=== PATIENT | male | born 1990 | race Caucasian/White ===

== ENCOUNTER 2019-10-29 23:28 | Emergency (ER) | payer SELFPAY ==
[2019-10-30] MEDS ORDERED: Ibuprofen 400 MG Tab PO ONE (01:02)
[2019-10-30] MEDS ORDERED: oxyCODONE 5 MG Tab PO ONE (01:02)
[2019-10-30] MEDS ORDERED: Acetaminophen 500 MG Tab PO ONE (01:02)
--- NOTE | 2019-10-30 01:02 | EDM.PDOC ---
ED [facility] GENERAL MEDICAL PROBLEM - General Chief Complaint: General Stated Complaint: GOUT Time Seen by Provider: 10/29/19 23:40 Source of Information: Reports: Patient History Limitations: Reports: No Limitations - History of Present Illness INITIAL COMMENTS - FREE TEXT/NARRATIVE: 29-year-old male with a past medical history of gout on allopurinol presenting with bilateral knee pain and left elbow pain. Patient reports a one-week history of pain to the posterior bilateral knees. No history of any preceding trauma. He denies any associated redness, warmth, or joint swelling. Reports painful ambulation due to the bilateral knee pain. Patient states that he is on allopurinol but has never undergone arthrocentesis for crystal analysis. He was presumptively diagnosed with gout by physician several years ago. No self treatment prior to arrival. He also complains of 2 days of swelling to the left olecranon bursa, no history of any preceding trauma. Denies associated streaking, fever, chills, nausea, or vomiting. No known wounds. No other complaints. ROS: A 10-point review of systems was negative, except as noted in the HPI (or in the ROS section of this note). Past medical history: Reviewed, no additional pertinent history. Surgical history: Reviewed in system, no additional pertinent history. Social history: Reviewed in system, no additional pertinent history. Family history: Reviewed in system, no additional pertinent history. PHYSICAL EXAM Vital signs reviewed. Nursing notes reviewed. Constitutional: Awake, alert, non-distressed. Head: Normocephalic, atraumatic. Eyes: EOMI, conjunctiva normal, no discharge, no scleral icterus. Ears, Nose, Throat: External ears and nose normal, moist oral mucosa. Cardiovascular: 2+ bilateral DP and PT pulses, capillary refill less than 2 seconds. Bilateral lower extremities are nonedematous, are warm and well- perfused and are iso-thermic to palpation. Pulmonary: normal work of breathing, no accessory muscle use. Abdomen/GI: Soft, nontender, nondistended, no guarding or rigidity, no masses. Musculoskeletal: No deformities. Mild tenderness to palpation to the bilateral popliteal fossae. The bilateral knees exhibit no deformity, erythema, swelling, or any evidence of wound or infection. Tenderness and erythema overlying the left olecranon bursa concerning for bursitis. There is no tenderness to the left elbow joint itself, which exhibits normal range of motion. Integumentary: Appropriate color for ethnicity, warm, dry, no pallor or jaundice, no rash. Neurologic: Alert, answering questions appropriately, normal speech, no facial droop, moving all extremities well. Psychiatric: Appropriate mood and affect, normal thought process. bilateral knee Pain Score (Numeric/FACES): 8 - Related Data Allergies Allergy/AdvReac Type Severity Reaction Status Date / Time No Known Allergies Allergy Verified 10/29/19 23:40 Home Meds: Home Meds Allopurinol [Zyloprim] 0 mg PO 10/29/19 [History] Past Medical History HEENT History: Reports: None Cardiovascular History: Reports: None Respiratory History: Reports: None Gastrointestinal History: Reports: None Genitourinary History: Reports: None Musculoskeletal History: Reports: Gout Neurological History: Reports: None Psychiatric History: Reports: None Endocrine/Metabolic History: Reports: None Hematologic History: Reports: None Immunologic History: Reports: None Oncologic (Cancer) History: Reports: None Dermatologic History: Reports: None - Infectious Disease History Infectious Disease History: Reports: Chicken Pox Social & Family History - Family History Family Medical History: Noncontributory - Recreational Drug Use Recreational Drug Use: No ED ROS GENERAL - Review of Systems Review Of Systems: See Below ED EXAM, GENERAL - Physical Exam Exam: See Below Course - Vital Signs Text/Narrative:: Patient hemodynamically stable, afebrile, well-appearing, looks nontoxic. Differential diagnosis includes but is not limited to: Gout, septic arthritis, reactive arthritis, autoimmune disease, lupus, fracture, dislocation, soft tissue injury, Latif's cyst, DVT, cellulitis, etc. Physical examination of both knees reveals no evidence of injury. No evidence of a Latif's cyst, no asymmetric lower extremity swelling, erythema, or pain to suggest a DVT. No evidence of cellulitis. The knees are not erythematous or swollen, presentation is not consistent with either septic arthritis or gout. No evidence of joint effusion to the knees. X-rays the bilateral knees are no rmal. Etiology of the bilateral knee pain is not entirely clear but there is no evidence of bony injury or infectious or inflammatory process. I do not suspect a DVT at this point given that the thighs and calves are not swollen, warm, or erythematous. Low suspicion for vascular emergency given strong pulses in the bilateral feet, lower extremities are warm and well perfused. Both of his knees look essentially normal and I am not entirely sure why he is experiencing pain. Clinically the patient has left-sided olecranon bursitis. There is low suspicion for infected bursa given lack of fever, chills, or systemic infectious symptoms. Mild erythema localized to the left olecranon bursa. No indication for antibiotics at this point. Plan for symptomatic treatment with [id number] acetaminophen, Voltaren gel, heating pad for left elbow, will offer elastic wraps of both knees and crutches due to pain. I did recommend the patient follow-up with a primary medicine clinic in the next 1 to 2 weeks for reevaluation. I offered to refer him to our family medicine clinic but he states he will be returning to his home [facility] and will follow up with his doctor there. Plan: Patient is stable to discharge home with outpatient primary care clinic follow-up. Strict emergency department return precautions were provided, patient indicated understanding. All questions were answered prior to departure. Discharged in good condition. DME: crutches Indication: bilateral knee pain Duration: 1 month Last Recorded V/S: Last Vital Signs Temp 36.7 C 10/30/19 03:42 Pulse 87 10/30/19 03:42 Resp 18 10/30/19 03:42 BP 116/83 10/30/19 03:42 Pulse Ox 96 10/30/19 03:42 - Orders/Labs/Meds Orders: Active Orders 24 hr Category Date Time Status DME for Discharge [COMM] Stat Oth 10/30/19 03:23 Ordered Elastic Wrap [OM.PC] Stat Oth 10/30/19 03:23 Ordered Meds: Medications Discontinued Medications Generic Name Dose Route Start Last Admin Trade Name Freq PRN Reason Stop Dose Admin Acetaminophen 1,000 mg 10/30/19 01:02 10/30/19 01:10 Tylenol Extra Strength PO 10/30/19 01:03 1,000 mg ONETIME ONE Administration Ibuprofen 400 mg 10/30/19 01:02 10/30/19 01:10 Motrin PO 10/30/19 01:03 400 mg ONETIME ONE Administration Oxycodone HCl 10 mg 10/30/19 01:02 10/30/19 01:09 Oxycodone PO 10/30/19 01:03 10 mg ONETIME ONE Administration Departure - Departure Time of Disposition: 03:29 Disposition: Home, Self-Care 01 Condition: Good Clinical Impression: Olecranon bursitis, left elbow Bilateral knee pain Qualifiers: Chronicity: acute Qualified Code(s): M25.561 - Pain in right knee - Discharge Information *PRESCRIPTION DRUG MONITORING PROGRAM REVIEWED*: Not Applicable *COPY OF PRESCRIPTION DRUG MONITORING REPORT IN PATIENT RICHARD: Not Applicable Instructions: Acute Knee Pain, Adult, Bursitis, [id number] Referrals: [facility] - Family Practice [Provider Group] - 1 Week (As needed.) Forms: ED Department Discharge Additional Instructions: You were seen in the emergency department for knee pain and left elbow pain. The source of your knee pain is not entirely clear at this point. Your x-rays are normal. There is no evidence of a broken bone, a blood clot, a ruptured cyst, or gout at this point. There is no need for antibiotics. We will wrap your knees with elastic bandaging and provide crutches and we will have you follow-up with a primary medical doctor in the next 1 to 2 weeks for reeval uation. I recommend [id number] acetaminophen, Voltaren gel, heating pad. You have olecranon bursitis, or inflammation of the bursa around the left elbow joint. This should get better with rest, Tylenol, Voltaren gel. If this does not improve in the next 1 to 2 weeks I would like for you to be evaluated by your family doctor. Please return the emergency department immediately if your symptoms worsen or if you feel worse. Thank you for choosing the [facility] emergency department in [place] for your medical needs today. It was a pleasure caring for you. The following information is given to patients seen in the emergency department who are being discharged. This information is to outline your options for follow -up care. We provide all patients seen in our emergency department with a follow-up referral. The need for follow-up, as well as the timing and circumstances, are variable depending upon the specifics of your emergency department visit. If you don't have a primary care physician on staff, we will provide you with a referral. We always advise you to contact your personal physician following an emergency department visit to inform them of the circumstance of the visit and for follow-up with them and/or the need for any referrals to a consulting specialist. The emergency department will also refer you to a specialist when appropriate. This referral assures that you have the opportunity for follow-up care with a specialist. All of these measure are taken in an effort to provide you with opt imal care, which includes your follow-up. Under all circumstances we always encourage you to contact your private physician who remains a resource for coordinating your care. When calling for follow-up care, please make the office aware that this follow-up is from your recent emergency room visit. If for any reason you are refused follow-up, please contact the [facility] Emergency Department at and asked to speak to the emergency department charge nurse. If you do not have a primary care physician that is caring for you, you can contact these clinics below to set up an appointment to establish care: [facility] - Primary Care [address] [place] [id number] [facility] [address] [place] [id number] Sepsis Event Note (ED) - Evaluation Sepsis Screening Result: No Definite Risk - My Orders Last 24 Hours: My Active Orders 10/30/19 03:23 DME for Discharge [COMM] Stat Elastic Wrap [OM.PC] Stat - Assessment/Plan Last 24 Hours: My Active Orders 10/30/19 03:23 DME for Discharge [COMM] Stat Elastic Wrap [OM.PC] Stat
--- NOTE | 2019-10-30 02:24 | CR ---
Indication: Posterior knee pain Technique: Two views Comparison: None Findings: Bones: Alignment is normal. No fractures or bone lesions. Joint spaces: No dislocation. Small to moderate knee effusion. Soft tissues: Phleboliths at the anterior soft tissues. Dictated by Keith Moreno MD @ Oct 30 2019 2:21AM Signed by Dr. Keith Moreno @ Oct 30 2019 2:22AM
--- NOTE | 2019-10-30 02:24 | CR ---
Indication: Posterior knee pain Technique: Two views Comparison: None Findings: Bones: Alignment is normal. No fractures or bone lesions. Joint spaces: No dislocation. Moderate knee effusion. Soft tissues: Unremarkable. Dictated by Keith Moreno MD @ Oct 30 2019 2:20AM Signed by Dr. Keith Moreno @ Oct 30 2019 2:21AM
== END 2019-10-30 03:43 | disposition home or self-care (01) ==
LOC: MW.ED 23:28
DX: M70.22 Olecranon bursitis, left elbow (principal); M25.561 Pain in right knee
CPT/HCPCS: 73560; 99283; A9270